=== PATIENT | male | born 1960 | race Caucasian/White ===

== ENCOUNTER 2024-04-16 10:47 | Inpatient (IN) | payer OTHER ==
[2024-04-16] MEDS ORDERED: Communication Order-Pharmacy FS SCH (13:15)
[2024-04-16 13:56] VITALS: BMI 29.7
[2024-04-16] MEDS ORDERED: Nitroglycerin 0.4 MG TAB (25 Tab Bottle) SL PRN (15:43)
[2024-04-16] MEDS ORDERED: Senokot S 8.6-50 MG TAB PO PRN (15:45)
[2024-04-16] MEDS ORDERED: Glucagon 1 MG/ML KIT IM PRN (15:47)
[2024-04-16] MEDS ORDERED: Dextrose 5% in Water 1,000 ML IV PRN (15:47)
[2024-04-16] MEDS ORDERED: Dextrose 50% Abboject 50 ML SYRINGE SLOW IVP PRN (15:47)
[2024-04-16] MEDS ORDERED: Insulin Lispro 100 UNIT/ML 10 ML VIAL SC PRN (15:59)
[2024-04-16] MEDS: Acetaminophen 325 MG TAB PO PRN (16:42)
[2024-04-16] MEDS: Carvedilol 3.125 MG TAB PO SCH (16:43)
[2024-04-16] MEDS: Nitroglycerin 2% Ointment 1 INCH/1 GM Packet TOP SCH ×2 (17:11→22:16)
[2024-04-16] MEDS: Atorvastatin Calcium 40 MG TAB PO SCH (20:44)
[2024-04-16] MEDS: Ranolazine ER 500 MG TAB PO SCH (20:44)
[2024-04-16] MEDS: TICAGRELOR 90 MG TABLET PO SCH (20:44)
[2024-04-16] MEDS ORDERED: Ranolazine ER 500 MG TAB PO SCH (21:00)
[2024-04-17 04:25] LABS: #Basophils 0.03 10x3/uL (0.0-0.2); #Eosinphils 0.11 10x3/uL (0.0-0.5); #Monocytes 0.52 10x3/uL (0.0-1.1); %Basophils 0.6 % (0.0-2.0); %Eosinophils 2.1 % (0.0-6.0); %Lymphocytes 26.5 % (18.0-47.0); %Monocytes 9.8 % (0.0-10.0); %Neutrophils 59.9 % (40.0-75.0); Hematocrit 37.3 % (38.8-50.0); Hemoglobin 12.6 g/dL (13.5-17.5); Mean Corpuscular HGB CONC 33.8 g/dL (32.0-36.0); Mean Corpuscular Hemoglobin 30.3 pg (27.0-33.0); Mean Corpuscular Volume 89.7 fL (81.2-95.1); Platelet Count 207 10x3/uL (150-450); RBC Distribution Width 12.1 % (11.5-14.5); Red Blood Cell (RBC) Count 4.16 10x6/uL (4.32-5.72); White Blood Cell (WBC) Count 5.3 10x3/uL (3.5-10.5)
[2024-04-17 04:37] LABS: ALT (SGPT) 30 U/L (8-55); AST (SGOT) 25 U/L (5-34); Albumin 2.8 g/dL (3.4-4.8); Alkaline Phosphatase 56 U/L (40-110); Anion Gap 13 mmol/L (10-20); BUN (Urea Nitrogen) 14 mg/dL (8.4-25.7); Bilirubin, Total 0.3 mg/dL (0.2-1.2); Calc. Creatinine Clearance 115 mL/min (70-130); Calcium 9.1 mg/dL (7.8-10.44); Carbon Dioxide 22 mmol/L (23-31); Cardiac Risk 3.6 (Less than 4.5); Chloride 107 mmol/L (98-107); Cholesterol 101 mg/dl (< 200 Desired); Estimated GFR 95; Globulin 3.7 g/dL (2.4-3.5); Glucose 157 mg/dL (80-115); HDL Cholesterol 28 mg/dL (>60 Neg Risk); LDL Cholesterol, Calculated 41 mg/dL; Potassium 4.1 mmol/L (3.5-5.1); Protein, Total 6.5 g/dL (5.8-8.1); Sodium 138 mmol/L (136-145); Triglycerides 160 mg/dL (Less than 150)
[2024-04-17 04:41] LABS: INR-International Normal Ratio 1.1; PTT 26.5 sec (22.0-33.0); Prothrombin Time 11.4 sec (9.5-12.1)
[2024-04-17] MEDS ORDERED: Nitroglycerin 50 MG/250 ML BOT 250 ML ONE (06:17)
[2024-04-17] MEDS ORDERED: Adenosine 6 mg (2 mL) VIAL ONE (06:17)
[2024-04-17] MEDS ORDERED: Lidocaine 1% (PF) 30 ML VIAL ONE (06:17)
[2024-04-17] MEDS ORDERED: Heparin 10,000 UNITS/ 10 ML VIAL ONE (06:17)
[2024-04-17] MEDS: Losartan 50 MG TAB PO SCH (06:29)
[2024-04-17] MEDS: Pantoprazole DR 40 MG TAB PO SCH (06:29)
[2024-04-17] MEDS: Aspirin 81 mg Enteric Coated Tablet PO SCH (06:30)
[2024-04-17] MEDS ORDERED: Verapamil 5 MG/2 ML VIAL ONE (08:40)
[2024-04-17] MEDS ORDERED: fentaNYL 50 mcg/mL 1 mL Vial ONE (08:48)
[2024-04-17] MEDS ORDERED: Midazolam HCl 2 mg/2 ml Vial ONE (08:48)
[2024-04-17] MEDS ORDERED: HYDROCHLOROTHIAZIDE PO SCH (09:00)
[2024-04-17] MEDS ORDERED: OLMESARTAN PO SCH (09:00)
[2024-04-17] MEDS ORDERED: Hydrochlorothiazide 25 MG TAB PO SCH (09:00)
[2024-04-17] MEDS ORDERED: Aspirin Chewable 81 MG TAB PO SCH (09:00)
[2024-04-17] MEDS ORDERED: [UNRECOGNIZED DRUG - OTHER] PO SCH (09:00)
[2024-04-17] MEDS ORDERED: Atropine Sulfate 1 mg/1 ml Vial ONE (09:15)
[2024-04-17] MEDS ORDERED: Sodium Chloride 0.9% 200 ML IV PRN (10:16)
[2024-04-17] MEDS ORDERED: Nitroglycerin 0.4 MG TAB (25 Tab Bottle) SL PRN (10:16)
[2024-04-17 10:42] VITALS: BMI 29.7
[2024-04-17 12:21] VITALS: BP 109/75; TEMP 98
[2024-04-17] MEDS: Insulin Lispro 100 UNIT/ML 10 ML VIAL SC PRN (13:00)
== END 2024-04-17 19:03 | disposition home or self-care (01) | DRG 324 ==
LOC: INTOOBSV 12:42 → CSHTELE 12:42 → OBSVTOIN 16:14
PROVIDERS: ADMIT Internal Medicine; ATTEND Hospitalist
PROC: 4A023N7 Measurement of Cardiac Sampling and Pressure, Left Heart, Percutaneous Approach (ICD-10-PCS; principal; 2024-04-17)
PROC: 027034Z Dilation of Coronary Artery, One Artery with Drug-eluting Intraluminal Device, Percutaneous Approach (ICD-10-PCS; 2024-04-17)
PROC: 02F03ZZ Fragmentation in Coronary Artery, One Artery, Percutaneous Approach (ICD-10-PCS; 2024-04-17)
PROC: B2111ZZ Fluoroscopy of Multiple Coronary Arteries using Low Osmolar Contrast (ICD-10-PCS; 2024-04-17)
PROC: B2151ZZ Fluoroscopy of Left Heart using Low Osmolar Contrast (ICD-10-PCS; 2024-04-17)
DX: I25.110 Atherosclerotic heart disease of native coronary artery with unstable angina pectoris (principal); I10 Essential (primary) hypertension; E78.5 Hyperlipidemia, unspecified; E11.9 Type 2 diabetes mellitus without complications; E66.9 Obesity, unspecified; K21.9 Gastro-esophageal reflux disease without esophagitis; Z79.899 Other long term (current) drug therapy; Z95.5 Presence of coronary angioplasty implant and graft; Z88.8 Allergy status to other drugs, medicaments and biological substances; Z79.82 Long term (current) use of aspirin; Z79.84 Long term (current) use of oral hypoglycemic drugs; Z90.49 Acquired absence of other specified parts of digestive tract; Z98.890 Other specified postprocedural states; Z87.891 Personal history of nicotine dependence; Z68.29 Body mass index [BMI] 29.0-29.9, adult
CPT/HCPCS: 36416; 80053; 80061; 85025; 85347; 85610; 85730; 92928; 92972; 92978; 93005; 93010; 93458; 94760; 99152; 99153; C1753; C1761; C1769; C1874; C1887; C1894; C9600; G0378; J0153; J0461; J1644; J1815; J2001; J2250; J3010